=== PATIENT | male | born 1945 | race African-American/Black ===

== ENCOUNTER 2018-02-09 18:32 | Emergency (ER) | payer OTHER ==
[2018-02-09] MEDS: IPRATRPIUM/ALBUTEROL 0.5/2.5MG 3 ML NEBU. NEB (19:40)
== END 2018-02-09 21:14 | disposition home or self-care (01) ==
LOC: ER 21:14
DX: J06.9 Acute upper respiratory infection, unspecified (principal); I10 Essential (primary) hypertension
CPT/HCPCS: 71046; 94640; 99284-25; J7620

== ENCOUNTER 2020-05-17 09:42 | Emergency (ER) | payer OTHER ==
[~2020-05-17] VITALS: Ht 185.4 cm; Wt 70.4 kg
[~2020-05-17 09:42] MED LIST: AMLO10TA8 PO; AMOX1TAB61 PO; ASPI-630 PO; ATOR40TA59 PO; CLOP75TA PO
[2020-05-17 10:22] VITALS: BP 138/78
--- NOTE | 2020-05-17 12:25 | PHYS DOC ---
Past Medical History Past Medical History: CVA, Hypertension Past Surgical History: Cervical Fusion Smoking Status: Never Smoker Alcohol Use: Occasionally Drug Use: None General Adult EDM: Chief Complaint: EYE PROBLEMS HPI: HPI: Patient is a 74 year old man with history of hypertension, CVA, who presents to the ED today complaining of left eye redness, drainage and irritation, symptoms began yesterday. Patient states 2 weeks ago he [facility], he states he has not had any issues until yesterday. Patient denies any pain to the left eye. Denies any vision loss. Review of Systems: Review of Systems: Constitutional: Denies fever or chills. [] Eyes: Reports left eye redness, drainage, irritation. Denies change in visual acuity. [] Musculoskeletal: Denies back pain or joint pain. [] Integument: Denies rash. [] Neurologic: Denies headache, focal weakness or sensory changes. [] Psychiatric: Denies depression or anxiety. [] Heart Score: Risk Factors: Risk Factors: DM, Current or recent (<one month) smoker, HTN, HLP, family history of CAD, obesity. Risk Scores: Score 0 - 3: 2.5% MACE over next 6 weeks - Discharge Home Score 4 - 6: 20.3% MACE over next 6 weeks - Admit for Clinical Observation Score 7 - 10: 72.7% MACE over next 6 weeks - Early Invasive Strategies Allergies: Allergies: Allergies Coded Allergies Type Severity Reaction Last Updated Verified No Known Drug Allergies 02/09/18 No Physical Exam: PE: Constitutional: Well developed, well nourished, no acute distress, non-toxic appearance. [] HENT: Normocephalic, atraumatic, bilateral external ears normal, oropharynx moist, no oral exudates, nose normal. [] Eyes: PERRLA, EOMI, bilateral conjunctiva mildly injected, no obvious drainage noted on exam. Skin: Warm, dry, no erythema, no rash. [] Back: No tenderness, no CVA tenderness. [] Extremities: No tenderness, no cyanosis, no clubbing, ROM intact, no edema. [] Neurologic: Alert and oriented X 3, normal motor function, normal sensory function, no focal deficits noted. [] Psychologic: Affect normal, judgement normal, mood normal. [] Current Patient Data: Vital Signs: Vital Signs Date Time Temp Pulse Resp B/P (MAP) Pulse Ox O2 Delivery O2 Flow Rate FiO2 05/17/20 10:22 97.0 51 18 138/78 (98) 99 Room Air 97.0 EKG: EKG: [] Radiology/Procedures: Radiology/Procedures: [] Course & Med Decision Making: Course & Med Decision Making Pertinent Labs and Imaging studies reviewed. (See chart for details) This is a 74-year-old male patient presenting to the ED today with left eye redness, irritation and drainage that began yesterday. Patient had cataract surgery at the [facility] 2 weeks ago. Informed patient i need to consult the [facility] doctor that did his procedure. I requested him to give me the contact information, he stated he does not have any information about the doctor that did his procedure. I came to the desk to look up [place] ophthalmologists. Patient somehow had left by the time I went back to his room. Marine Disclaimer: Marine Disclaimer: This electronic medical record was generated, in whole or in part, using a voice recognition dictation system. Departure Departure Impression: Primary Impression: Redness of eye, left Disposition: 01 HOME, SELF-CARE Condition: STABLE Referrals: UNKNOWN PCP NAME (PCP) Justicifation of Admission Dx: Justifications for Admission: Justification of Admission Dx: N/A CHLOE WILKERSON APRN May 17, 2020 12:25
== END 2020-05-17 12:31 | disposition home or self-care (01) ==
LOC: ER 09:42
DX: H57.89 Other specified disorders of eye and adnexa (principal); H57.12 Ocular pain, left eye; I10 Essential (primary) hypertension; Z86.73 Personal history of transient ischemic attack (TIA), and cerebral infarction without residual deficits
CPT/HCPCS: 99281